=== PATIENT | female | born 1975 | race Caucasian/White ===

== ENCOUNTER 2017-09-02 10:47 | Inpatient (IN) | payer OTHER ==
[~2017-09-02] VITALS: Ht 162.6 cm; Wt 71.7 kg
[~2017-09-02 10:47] MED LIST: CALC-590 PO; PREN1TAB80 PO
[2017-09-02] MEDS ORDERED: RINGERS SOLUTION,LACTATED 1,000 ML IV ONE (10:48)
[2017-09-02] MEDS ORDERED: CITRIC ACID/SODIUM CITRATE 30 ML SOLUTION UDCUP PO ONE (11:00)
[2017-09-02] MEDS ORDERED: METOCLOPRAMIDE HCL 5 MG/ML 2 ML VIAL IVP ONE (11:00)
[2017-09-02] MEDS ORDERED: INFLUENZA VIRUS VACCINE QVS 2017-18 (3YR+)/PF 60 MCG/0.5 ML SYRINGE IM ONE (11:00)
[2017-09-02 11:30] VITALS: BP 110/66
[2017-09-02] MEDS ORDERED: MORPHINE SULFATE/PF 1 MG/ML 10 ML AMP ONE (11:32)
[2017-09-02] MEDS ORDERED: CeFAZolin 2 GM/DEXTROSE 50 ML IV ONE (11:32)
[2017-09-02] MEDS ORDERED: FentaNYL CITRATE-PF 100 MCG/2 ML VIAL ONE (11:32)
[2017-09-02 11:34] LABS: BASOPHILS % (AUTO) 0.4 % (0.0-2.0); EOSINOPHILS % (AUTO) 1.3 % (1.0-6.0); HEMATOCRIT 32.5 % (36-46); HEMOGLOBIN 11.1 g/dL (12.0-16.0); LYMPHOCYTES # (AUTO) 1.5 K/uL (1.0-4.8); LYMPHOCYTES % (AUTO) 20.2 % (22.0-44.0); MEAN CORPUSCULAR HEMOGLOBIN 31.8 pg (26.0-34.0); MEAN CORPUSCULAR HGB CONC 34.1 G/dL (31.0-37.0); MEAN CORPUSCULAR VOLUME 93 fL (80-100); MONOCYTES # (AUTO) 0.5 K/uL (0.1-1.0); MONOCYTES % (AUTO) 6.4 % (2.0-9.0); NEUTROPHILS # (AUTO) 5.4 K/uL (1.8-7.7); NEUTROPHILS % (AUTO) 71.7 % (40.0-70.0); PLATELET COUNT (AUTO) 215 K/uL (150-450); RED BLOOD CELL COUNT(AUTO) 3.48 MIL/uL (4.00-5.20); WHITE BLOOD COUNT (AUTO) 7.6 K/uL (4.5-11.0)
[2017-09-02] MEDS ORDERED: DiphenhydrAMINE HCL 50 MG/ML VIAL IVP PRN ×2 (13:30→14:00)
[2017-09-02] MEDS ORDERED: NALBUPHINE HCL 10 MG/ML VIAL IVP PRN (13:30)
[2017-09-02] MEDS ORDERED: PROMETHAZINE HCL 12.5 MG in SODIUM CHLORIDE 0.9% 50 ML IV PRN (13:30)
[2017-09-02] MEDS ORDERED: MEPERIDINE-PF 25 MG/ML SYRINGE IVP PRN (13:30)
[2017-09-02] MEDS ORDERED: DEXAMETHASONE SOD PHOS 4 MG/ML VIAL IVP PRN (13:30)
[2017-09-02] MEDS ORDERED: ONDANSETRON HCL 4 MG/2 ML VIAL IVP PRN ×2 (13:30→14:00)
[2017-09-02] MEDS ORDERED: FentaNYL CITRATE-PF 100 MCG/2 ML VIAL IVP PRN ×3 (14:00)
[2017-09-02] MEDS ORDERED: LANOLIN 7 GM OINTMENT TP PRN (14:00)
[2017-09-02] MEDS ORDERED: NALOXONE HCL 0.4 MG/ML VIAL IVP PRN (14:00)
[2017-09-02] MEDS ORDERED: ACETAMINOPHEN/CODEINE 300-30 MG TABLET PO PRN ×2 (14:00)
[2017-09-02] MEDS ORDERED: GENTAMICIN SULFATE 160 MG in DEXTROSE 5%-WATER 50 ML IV ONE (15:00)
[2017-09-02] MEDS ORDERED: NALBUPHINE HCL 10 MG/ML VIAL SQ SCH (16:00)
[2017-09-02] MEDS: NALBUPHINE HCL 10 MG/ML VIAL IVP SCH ×2 (16:07→22:15)
[2017-09-02] MEDS: DEXTROSE 5%-0.45% SODIUM CHL 1,000 ML IV SCH ×2 (16:15→19:50)
[2017-09-03] MEDS: DEXTROSE 5%-0.45% SODIUM CHL 1,000 ML IV SCH ×2 (00:27→04:19)
[2017-09-03] MEDS: NALBUPHINE HCL 10 MG/ML VIAL IVP SCH ×2 (04:20→10:17)
[2017-09-03] MEDS ORDERED: OXYTOCIN 10 UNITS/ML VIAL IM ONE (05:45)
[2017-09-03] MEDS ORDERED: ONDANSETRON HCL 4 MG/2 ML VIAL IVP ONE (05:45)
[2017-09-03] MEDS ORDERED: LIDOCAINE HCL/PF 2% 5 ML VIAL IM ONE (05:45)
[2017-09-03] MEDS ORDERED: 0.9% SODIUM CHLORIDE 10 ML VIAL IVP ONE (05:45)
[2017-09-03] MEDS ORDERED: EPINEPHrine 1:1,000 [1 MG/ML] AMP IM ONE (05:45)
[2017-09-03] MEDS ORDERED: PHENYLEPHRINE HCL 10 MG/ML VIAL IVP ONE (05:45)
[2017-09-03] MEDS ORDERED: DEXAMETHASONE SOD PHOS 4 MG/ML VIAL IVP ONE (05:45)
[2017-09-03] MEDS ORDERED: IBUPROFEN 800 MG TABLET PO SCH (07:00)
[2017-09-03] MEDS: MAGNESIUM HYDROXIDE SUSPENSION 30 ML UDCUP PO SCH ×2 (09:00→21:00)
[2017-09-03] MEDS ORDERED: RINGERS SOLUTION,LACTATED 1,000 ML IV ONE ×2 (11:02→11:15)
[2017-09-03] MEDS ORDERED: RINGERS SOLUTION,LACTATED 1,000 ML IV SCH (11:15)
[2017-09-03] MEDS: ACETAMINOPHEN 1000 MG/ISO-OSM 100 ML IV SCH ×3 (11:18→23:08)
[2017-09-03] MEDS: KETOROLAC TROMETHAMINE 30 MG/ML VIAL IVP SCH ×2 (12:41→21:01)
[2017-09-04] MEDS: KETOROLAC TROMETHAMINE 30 MG/ML VIAL IVP SCH (04:20)
[2017-09-04] MEDS: MAGNESIUM HYDROXIDE SUSPENSION 30 ML UDCUP PO SCH ×2 (09:37→21:00)
[2017-09-04] MEDS ORDERED: IBUPROFEN 800 MG TABLET PO SCH (11:00)
[2017-09-04] MEDS: IBUPROFEN 800 MG TABLET PO SCH ×2 (17:25→22:50)
[2017-09-05] MEDS: IBUPROFEN 800 MG TABLET PO SCH ×2 (04:44→11:13)
[2017-09-05] MEDS ORDERED: IBUP-2071 PO (12:53)
== END 2017-09-05 14:35 | disposition home or self-care (01) | DRG 766 ==
LOC: 4S 10:47 → OBSVTOIN 10:47
PROVIDERS: ADMIT Obstetrics & Gynecology; ATTEND Obstetrics & Gynecology
PROC: 10D00Z1 Extraction of Products of Conception, Low, Open Approach (ICD-10-PCS; principal; 2017-09-02)
PROC: 0UB70ZZ Excision of Bilateral Fallopian Tubes, Open Approach (ICD-10-PCS; 2017-09-02)
PROC: 10907ZC Drainage of Amniotic Fluid, Therapeutic from Products of Conception, Via Natural or Artificial Opening (ICD-10-PCS; 2017-09-02)
DX: O34.211 Maternal care for low transverse scar from previous cesarean delivery (principal); O09.523 Supervision of elderly multigravida, third trimester; Z30.2 Encounter for sterilization; Z3A.39 39 weeks gestation of pregnancy; Z37.0 Single live birth
CPT/HCPCS: 86850; 86900; 86901; 87081; 88302; 90471; J0131; J0171; J0690; J1100; J1580; J1885; J2300; J2370; J2405; J2590; J2765; J3010; J3490; J7060; J7120